=== PATIENT | male | born 1975 | race African-American/Black ===

== ENCOUNTER 2020-11-12 06:25 | Emergency (ER) | payer SELFPAY ==
[2020-11-12 06:25] VITALS: BP 0/0; PULSE 0; RESP 0; O2SAT 0
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
[2020-11-12 06:37] VITALS: PULSE 0
--- NOTE | 2020-11-12 07:13 | PC.NURSE ---
report to tevin
--- NOTE | 2020-11-13 04:31 | PC.NURSE ---
MTS called stating they were unable to find next of kin and we can release body at this time.
== END 2020-11-12 09:15 | disposition expired ==
LOC: ANHED 06:33
PROVIDERS: Emergency Provider Emergency Medicine
DX: S01.21XA Laceration without foreign body of nose, initial encounter (principal); S81.812A Laceration without foreign body, left lower leg, initial encounter; S80.211A Abrasion, right knee, initial encounter; I46.8 Cardiac arrest due to other underlying condition; V57.5XXA Driver of pick-up truck or van injured in collision with fixed or stationary object in traffic accident, initial encounter
CPT/HCPCS: 92950; 99285